=== PATIENT | male | born 1980 | race Two or more races ===

== ENCOUNTER 2018-12-16 18:52 | Emergency (ER) | payer SELFPAY ==
[~2018-12-16] VITALS: Ht 185.4 cm; Wt 97.5 kg
[2018-12-16 19:16] VITALS: BP 127/83
== END 2018-12-17 01:23 | disposition left against medical advice (07) ==
LOC: ER 18:52
DX: Z04.3 Encounter for examination and observation following other accident (principal); Z53.21 Procedure and treatment not carried out due to patient leaving prior to being seen by health care provider